=== PATIENT | male | born 1950 | race Caucasian/White ===

== ENCOUNTER 2017-06-29 12:04 | Emergency (ER) | payer OTHER ==
[~2017-06-29] VITALS: Ht 188 cm; Wt 118.2 kg
[~2017-06-29 12:04] MED LIST: ASPIRIN E.C. 8181 MG PO; CALCIUM + D 6001 TA1 PO; CALCIUM 500 + D1 TA2 PO; COLACE 100100 MG/CAP PO; DITROPAN XL 5MG5 M1 PO; EFFEXOR 50M50 MG/TAB PO; ETODOLAC300 MG PO; FLOMAX 0.40.4 MG/CAP PO; IRON325 M1 PO; LISINOPRIL10 MG PO; LOPRESSOR 550 MG/TAB PO; LOPRESSOR100 MG PO; MACROBID 1100 MG/CAP PO; OMEPRAZOLE20 MG PO; OS-CAL 500 + D1 TAB PO; PHENERGAN 25 TA25 MG PO; PRILOTC PO; PRINIVIL10 MG PO; PROSCAR 5MG5 MG PO; RITALIN 20M20 MG/TAB PO; SERTRALINE100 MG PO; SIMVASTATIN80 MG PO; WELLBUTRIN SR150 M1 PO; ZESTORETIC 12.51 TAB PO; ZOCOR 40MG40 MG PO; ZOCOR 80MG80 MG PO; ZOFRAN 4MG T4 MG/TAB PO; ZOLOFT 100MG100 MG PO
[2017-06-29 12:06] VITALS: TEMP 97
[2017-06-29 12:31] LABS: BASO % 0.3 % (0.0-2.0); EOS # 0.2 (0.0-0.7); EOS % 1.9 % (0-4.0); GRAN # 7.1 (1.4-6.5); GRAN % 71.1 % (42.2-75.2); HEMATOCRIT 46.2 % (42.0-52.0); HEMOGLOBIN 15.5 g/dl (13.5-18.0); LYMPH # 1.5 (1.2-3.4); LYMPH % 14.9 % (20.0-51.0); MEAN CELL VOLUME 87 fl (80.0-100.0); MEAN CORPUSCULAR HEMOGLOBIN 29 pg (27.0-31.0); MEAN CORPUSCULAR HGB CONC 34 g/dl (33.0-37.0); MEAN PLATELET VOLUME 10.1 fl (7.4-10.4); MONO # 1.1 (0.1-0.6); MONO % 11.3 % (1.7-9.3); PLATELET COUNT 239 K/mm3 (130-400); RED BLOOD COUNT 5.31 M/mm3 (4.20-5.60); REDCELL DISTRIBUTION WIDTH-CV 13.9 % (11.5-14.5)
[2017-06-29] MEDS ORDERED: VITAMIN C500 MG PO (12:36)
[2017-06-29 12:43] LABS: ALANINE AMINOTRANSFERASE 31 U/L (21-72); ALBUMIN 4.1 gm/dL (3.5-5.0); ALKALINE PHOSPHATASE 92 U/L (50-136); ANION GAP 12 mmol/L (7-16); AST,SGOT 26 U/L (15-37); BILIRUBIN,TOTAL 0.5 mg/dL (0.0-1.0); BLOOD UREA NITROGEN 14 mg/dL (9-20); C-REACTIVE PROTEIN 2.8 mg/dL (0.0-0.9); CALCIUM 10.3 mg/dL (8.4-10.2); CARBON DIOXIDE 26 mmol/L (22-30); CHLORIDE 103 mmol/L (98-107); CREATININE, serum 0.88 mg/dL (0.66-1.25); GLUCOSE 139 mg/dL (74-106); POTASSIUM 4.2 mmol/L (3.4-5.0); SODIUM 141 mmol/L (137-145); TOTAL PROTEIN 7.8 gm/dL (6.4-8.2)
[2017-06-29 12:53] LABS: TROPONIN-I < 0.012 ng/mL (0.000-0.034)
[2017-06-29] MEDS ORDERED: NORCO 325 MG-51 TAB PO (14:43)
[2017-06-29] MEDS ORDERED: LEVAQUIN 5500 MG/TA1 PO (14:43)
[2017-06-29 14:57] LABS: ERYTHROCYTE SEDIMENTATION RATE 21 mm/hr (0-30)
[2017-06-29 15:19] VITALS: BP 147/106; PULSE 75
== END 2017-06-29 15:20 | disposition home or self-care (01) ==
LOC: COL.ER 12:04
PROVIDERS: Family Medicine
DX: J18.1 Lobar pneumonia, unspecified organism (principal); Z79.82 Long term (current) use of aspirin
CPT/HCPCS: J0696; J1170; J1885; J2930

== ENCOUNTER 2017-07-01 16:54 | Emergency (ER) | payer OTHER ==
[~2017-07-01] VITALS: Ht 190.5 cm; Wt 120.6 kg
[~2017-07-01 16:54] MED LIST changes: +LEVAQUIN 5500 MG/TA1 PO; +NORCO 325 MG-51 TAB PO; +VITAMIN C500 MG PO
[2017-07-01 17:04] VITALS: TEMP 97.5
[2017-07-01 17:59] LABS: C-REACTIVE PROTEIN 3.8 mg/dL (0.0-0.9)
[2017-07-01 18:08] LABS: TROPONIN-I < 0.012 ng/mL (0.000-0.034)
[2017-07-01] MEDS ORDERED: VOLTAREN 75 DR75 MG PO (19:02)
[2017-07-01] MEDS ORDERED: PREDNISONE20 MG PO (19:02)
[2017-07-01] MEDS ORDERED: LIDODERM 5% PATC1 EA TP (19:02)
[2017-07-01 19:11] VITALS: BP 119/83; PULSE 88
== END 2017-07-01 19:13 | disposition home or self-care (01) ==
LOC: COL.ER 16:54
PROVIDERS: Emergency Medicine
DX: M94.0 Chondrocostal junction syndrome [Tietze] (principal); I10 Essential (primary) hypertension; E78.5 Hyperlipidemia, unspecified; K21.9 Gastro-esophageal reflux disease without esophagitis; Z87.01 Personal history of pneumonia (recurrent); Z96.651 Presence of right artificial knee joint; Z98.890 Other specified postprocedural states; Z79.82 Long term (current) use of aspirin
CPT/HCPCS: J1885; J2930; J7040

== ENCOUNTER 2020-05-28 11:30 | Emergency (ER) | payer MEDICARE, OTHER ==
[~2020-05-28] VITALS: Ht 190.5 cm; Wt 109.1 kg
[~2020-05-28 11:30] MED LIST changes: +LIDODERM 5% PATC1 EA TP; +PREDNISONE20 MG PO; +VOLTAREN 75 DR75 MG PO
[2020-05-28 11:35] VITALS: TEMP 97.9
[2020-05-28 12:04] VITALS: BP 138/93; PULSE 83
== END 2020-05-28 12:07 | disposition home or self-care (01) ==
LOC: COL.ER 11:30
DX: S01.21XA Laceration without foreign body of nose, initial encounter (principal); Z87.891 Personal history of nicotine dependence; Z79.82 Long term (current) use of aspirin; W01.198A Fall on same level from slipping, tripping and stumbling with subsequent striking against other object, initial encounter; Y92.59 Other trade areas as the place of occurrence of the external cause

== ENCOUNTER → 2020-06-03 | Outpatient (CLI) | payer MEDICARE, OTHER ==
[2020-06-03 13:25] VITALS: BP 120/83; PULSE 91; TEMP 98.3
== END ==
LOC: COL.ER 13:20
DX: Z48.02 Encounter for removal of sutures (principal)